=== PATIENT | male | born 1985 | race Caucasian/White ===

== ENCOUNTER 2016-03-14 12:33 | Inpatient (IN) ==
[~2016-03-14 12:33] MED LIST: Cefepime HCl 1,000 MG in D5% in Water (Mini-Bag+) 100 ML IVPB SCH
[2016-03-14] MEDS ORDERED: 0.9 % Sodium Chloride 1,000 ML IVC ONE (14:27)
[2016-03-14] MEDS ORDERED: methylPREDNISolone 125 MG/2 ML VIAL IVP ONE (14:28)
--- NOTE | 2016-03-14 14:29 | Emergency Department Note ---
Disposition Clinical Impression: Meningitis Headache Qualifiers: Headache type: unspecified Headache chronicity pattern: acute headache Intractability: intractable Qualified Code(s): R51 - Headache Fever Qualifiers: Fever type: unspecified Qualified Code(s): R50.9 - Fever, unspecified UTI (urinary tract infection) Qualifiers: Urinary tract infection type: acute cystitis Hematuria presence: without hematuria Qualified Code(s): N30.00 - Acute cystitis without hematuria Disposition: Admitted As Inpatient Condition: Fair Time of Disposition: 17:21 SOB HPI - General Chief Complaint: ED Headache Stated Complaint: fever, "aint feeling real good at all" Time Seen by Provider: 03/14/16 14:26 Source: patient Limitations: no limitations Nursing Notes Reviewed: Yes Vital Signs Reviewed: Yes - History of Present Illness He presents with cough congestion not feeling well. Patient has a history of asthma since he's been short of breath. Says his cough so much that he has a headache. The trach related to hypoventilation. He is on a ventilator at night. Pt Subjective Complaint: cough, "asthma attack" Onset (ago): day(s) Severity: moderate Consistency/Duration: constant Improves with: nothing Worsens with: exertion Known history of: asthma, other (Trach) Associated symptoms: Reports: fever, wheezing, sputum production Treatment prior to arrival: none - Related Data Home Medications Medication Instructions Recorded Confirmed Albuterol Inhaler 03/10/15 ClonazePAM 03/10/15 Cyclobenzaprine 03/10/15 Furosemide 03/10/15 Wellbutrin 03/10/15 Previous Rx's Medication Instructions Recorded Albuterol Neb [Proventil Neb] 2.5 mg IH Q4HR #1 vial.neb 03/10/15 Benzonatate [Tessalon] 100 mg PO TID 5 Days 03/10/15 Ipratropium/Albuterol Neb [Duoneb] 3 ml IH Q6HR 5 Days 03/10/15 Benzonatate [Tessalon] 100 mg PO TID 5 Days 07/07/15 Ipratropium/Albuterol Neb [Duoneb] 3 ml IH Q6HR 5 Days 07/07/15 Allergies Allergy/AdvReac Type Severity Reaction Status Date / Time aspirin [ASA] Allergy Difficulty Verified 07/07/15 08:57 Breathing Penicillins Allergy Difficulty Verified 07/07/15 08:57 Breathing Constitutional: Reports: fever. Denies: chills, weakness, weight change Eyes: Denies: eye pain, eye discharge, vision change ENT ED: Denies: ear pain, throat pain, dental pain, hearing loss, epistaxis, congestion, dysphagia Cardiovascular: Denies: chest pain, palpitations, dyspnea on exertion, edema, syncope Respiratory: Reports: cough, dyspnea, wheezes. Denies: hemoptysis, stridor Gastrointestinal: Denies: abdominal pain, nausea, vomiting, diarrhea, constipation, hematemesis, melena, hematochezia Genitourinary: Denies: urgency, dysuria, frequency, hematuria Musculoskeletal: Denies: back pain, neck pain, arthralgia, myalgia Integumentary: Denies: rash, abrasion, lesions Neurological: Denies: headache, weakness, numbness, paresthesias, confusion, abnormal gait, vertigo Psychiatric: Denies: anxiety, depression, suicidal thoughts, homicidal thoughts , auditory hallucinations, visual hallucinations Endocrine: Denies: fatigue Hematological/Lymphatic: Denies: easy bleeding, easy bruising Allergic/Immunologic: Denies: facial swelling, urticaria Past Medical History - Past Medical History Medical history: Reports: asthma, hypertension Psychiatric history: Reports: depression - Social History Smoking Status: Never smoker Smokeless Tobacco Status: No Alcohol use: Reports: none Drug use: Reports: none Physical Exam - General Limitations: no limitations General appearance: alert, in no apparent distress - Head Head exam: atraumatic, normocephalic, normal inspection - Eye Eye exam: Present: normal appearance, PERRL, EOMI - ENT ENT exam: normal exam, normal oropharynx, mucous membranes moist - Neck Neck exam: Present: normal inspection, full ROM, trachea midline, other ( Tracheostomy) - Chest Chest inspection: Present: normal inspection, symmetric chest wall rise - Respiratory Respiratory exam: Present: normal lung sounds bilaterally - Cardiovascular Cardiovascular exam: Present: regular rate, normal rhythm, normal heart sounds - Abdominal Exam Abdominal exam: Present: soft, Non-Tender. Absent: tenderness, distention, guarding, rebound, rigidity - Extremities Exam Extremities exam: Present: normal inspection, full ROM. Absent: tenderness, pedal edema - Expanded Lower Extremity Exam Neurovascular/Tendon exam: Absent: motor deficit, sensory deficit, tendon deficit Gait: not tested/not observed - Back Exam Back exam: Present: normal inspection - Neurological Exam Neurological exam: Present: alert, oriented X3 - Psychiatric Psychiatric exam: Present: normal affect, normal mood - Skin Skin exam: Present: warm, dry, intact, normal color Course - Reevaluation(s) Reevaluation #1: Patient has a headache is somewhat stiff neck. The fever. We recommend a lumbar puncture. Due to the patient's body habitus were not able to do one here under IR wore fluoroscopy. We contacted [facility] of they are full and will not have a bed available for at least a day or 2. Discussed the case with [facility] he exceeds the limits of the table at [facility] and Drs. Mitchell. I discussed with the patient transferred to the [facility] and he adamantly refuses that. Time: 15:34 Reevaluation #2: The initial blood draw was done and apparently did not get a lactate. A second line was placed and a lactate was ordered. Time: 18:33 - Consultations Consultation #1: A phone call returned from [facility] their table limit on their IR table is 250 kg, the patient exceeded the limit at [facility]. We have exhausted our options on transfer. The patient will be admitted here and treated empirically for meningitis. The patient will receive 2 g of Rocephin, 1 g of vancomycin, 600 mg of acyclovir empirically here in the ER. Time: 17:19 Consultation #2: I discussed the case with Dr. Tinsley, lilli. Time: 17:22 Consultation #3: I discussed the dosing of acyclovir with pharmacy. Their recommendations are on ideal body weight- 600 mg. Time: 17:22 Vital Signs Temperature 99.8 F H 03/14/16 12:46 Pulse Rate 115 03/14/16 12:46 Respiratory Rate 22 03/14/16 12:46 Blood Pressure 132/78 03/14/16 12:46 O2 Sat by Pulse Oximetry 97 03/14/16 12:46 Temperature 100.5 F H 03/14/16 17:24 Pulse Rate 127 03/14/16 17:24 Respiratory Rate 22 03/14/16 17:24 Blood Pressure 107/44 03/14/16 17:24 O2 Sat by Pulse Oximetry 94 L 03/14/16 17:24 Oxygen Delivery Oxygen Delivery Trach Mask Shortness of Breath/Dyspnea - Lab Data Result diagrams: 03/14/16 15:21 03/14/16 15:21 Lab Results 03/14/16 03/14/16 03/14/16 Range/Units 15:21 15:21 15:21 WBC 14.6 H (4.3-11.1) K/mcL RBC 4.76 (4.19-5.50) M/mcL Hgb 13.3 (12.9-16.9) g/dL Hct 41.7 (37.5-50.1) % MCV 87.6 (83.0-100.0) fL MCH 27.9 L (28.0-33.3) pg MCHC 31.9 (31.6-35.5) g/dL RDW 13.7 (11.5-14.5) % Plt Count 201 (140-400) K/mcL MPV 9.9 (9.4-12.4) fL Immature Gran % 0.9 (0-4) % Seg Neutrophils % 87.3 % Lymphocytes % 9.2 % Monocytes % 2.3 % Eosinophils % 0.0 % Basophils % 0.3 % Neutrophils # 12.8 H (1.6-8.9) K/mcL Lymphocytes # 1.3 (0.6-4.6) K/mcL Monocytes # 0.3 (0.0-1.3) K/mcL Eosinophils # 0.0 (0.0-0.6) K/mcL Basophils # 0.0 (0.0-0.2) K/mcL Sodium 136 (136-145) mEq/L Potassium 3.8 (3.5-4.5) mEq/L Chloride 103 (98-109) mEq/L Carbon Dioxide 21 (19-29) mEq/L BUN 12 (8-26) mg/dL Creatinine 0.78 (0.72-1.25) mg/dL Est GFR ( Amer) > 60 (> 60) Est GFR (Non-Af Amer) > 60 (> 60) BUN/Creatinine Ratio 15 (6-26) Glucose 99 (70-99) mg/dL Calculated Osmolality 282 (280-300) Calcium 8.7 (8.6-10.8) mg/dL Troponin I 0.00 (0-0.03) ng/mL B-Natriuretic Peptide (0-100) pg/mL Urine Color (Yellow) Urine Clarity (Clear) Urine pH (5.0-8.0) pH Units Ur Specific [place] (1.010-1.025) Urine Protein (Neg-Trace) mg/dL Urine Glucose (UA) (Normal) mg/dL Urine Ketones (Negative) mg/dL Urine Blood (Negative) Urine Nitrite (Negative) Urine Bilirubin (Negative) Urine Urobilinogen (Normal) mg/dL Ur Leukocyte Esterase (Negative) Urine Microscopic RBC (0-3) per hpf Urine Microscopic WBC (0-3) per hpf Ur Squamous Epith Cells (None-Few) per lpf Urine Bacteria (None-Few) per hpf Hyaline Casts (None-Few) per lpf Ur Culture Indicated? (NO) 03/14/16 03/14/16 Range/Units 15:22 15:45 WBC (4.3-11.1) K/mcL RBC (4.19-5.50) M/mcL Hgb (12.9-16.9) g/dL Hct (37.5-50.1) % MCV (83.0-100.0) fL MCH (28.0-33.3) pg MCHC (31.6-35.5) g/dL RDW (11.5-14.5) % Plt Count (140-400) K/mcL MPV (9.4-12.4) fL Immature Gran % (0-4) % Seg Neutrophils % % Lymphocytes % % Monocytes % % Eosinophils % % Basophils % % Neutrophils # (1.6-8.9) K/mcL Lymphocytes # (0.6-4.6) K/mcL Monocytes # (0.0-1.3) K/mcL Eosinophils # (0.0-0.6) K/mcL Basophils # (0.0-0.2) K/mcL Sodium (136-145) mEq/L Potassium (3.5-4.5) mEq/L Chloride (98-109) mEq/L Carbon Dioxide (19-29) mEq/L BUN (8-26) mg/dL Creatinine (0.72-1.25) mg/dL Est GFR ( Amer) (> 60) Est GFR (Non-Af Amer) (> 60) BUN/Creatinine Ratio (6-26) Glucose (70-99) mg/dL Calculated Osmolality (280-300) Calcium (8.6-10.8) mg/dL Troponin I (0-0.03) ng/mL B-Natriuretic Peptide 27 (0-100) pg/mL Urine Color Yellow (Yellow) Urine Clarity Cloudy A (Clear) Urine pH 7.0 (5.0-8.0) pH Units Ur Specific [place] 1.022 (1.010-1.025) Urine Protein 100 H (Neg-Trace) mg/dL Urine Glucose (UA) Normal (Normal) mg/dL Urine Ketones Negative (Negative) mg/dL Urine Blood Negative (Negative) Urine Nitrite Negative (Negative) Urine Bilirubin Negative (Negative) Urine Urobilinogen 4.0 H (Normal) mg/dL Ur Leukocyte Esterase Small H (Negative) Urine Microscopic RBC 3-5 H (0-3) per hpf Urine Microscopic WBC 30-50 H (0-3) per hpf Ur Squamous Epith Cells Many H (None-Few) per lpf Urine Bacteria Many H (None-Few) per hpf Hyaline Casts None Seen (None-Few) per lpf Ur Culture Indicated? YES A (NO) - EKG Data EKG attestation: Yes I reviewed and interpreted this EKG. EKG shows normal: Reports: sinus rhythm Rate: Reports: normal Rhythm: Reports: NSR Interpretation: Reports: no acute changes
[2016-03-14] MEDS ORDERED: Ipratropium/Albuterol Neb 3 ML IH ONE (14:33)
[2016-03-14] MEDS ORDERED: Vancomycin 1,000 MG in D5% in Water 250 ML IVPB ONE (15:26)
[2016-03-14 15:31] LABS: Basophils % 0.3 %; Hematocrit 41.7 % (37.5-50.1); Hemoglobin 13.3 g/dL (12.9-16.9); Immature Granulocytes % 0.9 % (0-4); Lymphocytes # 1.3 K/mcL (0.6-4.6); Lymphocytes % 9.2 %; Mean Corpuscular HGB Conc 31.9 g/dL (31.6-35.5); Mean Corpuscular Hemoglobin 27.9 pg (28.0-33.3); Mean Corpuscular Volume 87.6 fL (83.0-100.0); Mean Platelet Volume 9.9 fL (9.4-12.4); Monocytes # 0.3 K/mcL (0.0-1.3); Monocytes % 2.3 %; Neutrophils # 12.8 K/mcL (1.6-8.9); Platelet Count 201 K/mcL (140-400); Red Blood Count 4.76 M/mcL (4.19-5.50); Red Cell Distribution Width 13.7 % (11.5-14.5); Segmented Neutrophils % 87.3 %
[2016-03-14 15:47] LABS: BUN/Creatinine Ratio 15 (6-26); Blood Urea Nitrogen 12 mg/dL (8-26); Calcium 8.7 mg/dL (8.6-10.8); Carbon Dioxide 21 mEq/L (19-29); Chloride 103 mEq/L (98-109); Glucose 99 mg/dL (70-99); Osmolality,Calculated 282 (280-300); Potassium 3.8 mEq/L (3.5-4.5); Sodium 136 mEq/L (136-145); eGFR For African Americans > 60 (> 60); eGFR For Non-African Americans > 60 (> 60)
[2016-03-14 15:50] LABS: Bilirubin,Urine Negative (Negative); Blood,Urine Negative (Negative); Clarity,Urine Cloudy (Clear); Color,Urine Yellow (Yellow); Glucose,Urine (UA) Normal (Normal); Ketones,Urine Negative (Negative); Leukocyte Esterase,Urine Small (Negative); Nitrite,Urine Negative (Negative); Protein,Urine 100 mg/dL (Neg-Trace); Specific Gravity,Urine 1.022 (1.010-1.025)
[2016-03-14 15:51] LABS: Bacteria,Urine Many per hpf (None-Few); Hyaline Casts,Urine None Seen per lpf (None-Few); Squamous Epithelial Cell,Urine Many per lpf (None-Few); WBC,Urine 30-50 per hpf (0-3)
[2016-03-14] MEDS ORDERED: Acyclovir 600 MG in D5% in Water 250 ML IVPB ONE (17:17)
[2016-03-14] MEDS ORDERED: Naloxone 0.4 MG/ML INJ IVP PRN (19:32)
[2016-03-14] MEDS ORDERED: Albuterol 2.5 MG/3 ML NEBULIZER IH PRN (19:35)
[2016-03-14] MEDS ORDERED: 0.9 % Sodium Chloride 1,000 ML IVC SCH ×2 (19:45→20:23)
[2016-03-14] MEDS ORDERED: Furosemide 40 MG/4 ML VIAL IVP ONE (20:23)
[2016-03-14] MEDS ORDERED: Cefepime HCl 1,000 MG in D5% in Water (Mini-Bag+) 100 ML IVPB SCH (20:55)
--- NOTE | 2016-03-14 21:02 | Internal Med History&Physical ---
Date of Encounter: 03/14/16 Time of Encounter: 20:00 Assessment and Plan (1) Fever Current visit: Yes Status: Acute -Multifactorial, likely secondary to UTI vs. concern for bactremia given history of chronic cellulitis and worsening LLE erythema -Given clinical presentation, highly unlikely patient has meningitis. He complains more of respiratory issues with cough and difficult breathing. -Headache resolved, no neck stiffness -Patient given empiric IV abx for Meningitis -Unable to obtain LP due to body habitus -follow up blood cultures Qualifiers: Qualified Code(s): R50.9 - Fever, unspecified (2) Bacteremia Current visit: Yes Status: Acute -concern for bacteremia given worsening LLE erythema/chronic cellulitis -Will continue Vancomycin for Staph coverage -Added Cefepime for pseudomonal coverage given history of respiratory failure requiring vent support -Patient received Ceftriaxone in the ER for concern for meningitis, will continue at this time. Please re-evaluate in am, if clinically improving, discontinue Ceftriaxone. -follow up blood cultures (3) Pulmonary edema Current visit: Yes Status: Acute -no history of CHF -however noted to have Pulm Edema on CXR -will give one dose of Lasix 40mg IV -continue to closely monitor -will attempt to obtain 2D echo Qualifiers: Chronicity: chronic Qualified Code(s): J81.1 - Chronic pulmonary edema (4) Headache Current visit: Yes Status: Resolved -Resolved at this time -can be secondary to the underlying fever Qualifiers: Headache type: tension-type Headache chronicity pattern: acute headache Intractability: intractable Qualified Code(s): G44.201 - Tension-type headache , unspecified, intractable (5) UTI (urinary tract infection) Current visit: Yes Status: Acute -continue IV abx -follow up urine culture Qualifiers: Urinary tract infection type: acute cystitis Hematuria presence: without hematuria Qualified Code(s): N30.00 - Acute cystitis without hematuria (6) Hypertension Current visit: Yes Status: Acute BP within acceptable range -continue home medications Qualifiers: Hypertension type: essential hypertension Qualified Code(s): I10 - Essential (primary) hypertension (7) Obesity hypoventilation syndrome Current visit: Yes Status: Acute -pt reports of being on ventilator support at night -will continue Vent support at bedtime -O2 supplementation as needed (8) DVT prophylaxis Current visit: Yes Status: Acute Heparin SQ (9) Morbid obesity with BMI of 70 and over, adult Current visit: Yes Status: Chronic Internal Medicine - H&P: HPI Chief complaint: generalized weakness, headache, fever Admitted From: Home Plans for Post Hospital Care: [facility] History of present illness: Mr. Kaminski is a 30 year old male with PMH of morbid obesity,obesity hypoventilation syndrome, hypertension, asthma, s/p tracheostomy due respiratory failure who presents to the ER for evaluation of generalized weakness,fever, and diffuse headache. In the ER patient reported of neck stiffness and concern for meningitis was raised. Patient was started on empiric treatment for meningitis. Due to patient's body habitus unable to do LP in the ER. During my evaluation patient is sitting in bed with present at bedside. He reports of feeling significantly better since his admission to the hospital, denies any headache, neck stiffness at this time. He has bilateral LE lymphedema and chronic cellulitis. He reports of using a ventilator at night and Oxygen throughout the day. At this time he denies any headache, dizziness, lightheadedness, chest pain, sob, abd pain, n/v, fever, or chills. Social Hx: Denies any smoking history, alcohol use, or illicit drug use Past Med Surg Social Fam HX - Past Medical History Medical history: asthma, hypertension Psychiatric history: depression - Social History Smoking Status: Never smoker Smokeless Tobacco Status: No Alcohol use: none Drug use: none Internal Medicine - H&P: Meds Albuterol Neb [Proventil Neb] 2.5 mg IH Q4H PRN 03/14/16 [History] BuPROPion SR (12 HR) [Wellbutrin SR] 150 mg PO BID 03/14/16 [History] Cetirizine HCl [Zyrtec] 10 mg PO DAILY 03/14/16 [History] ClonazePAM [Klonopin] 0.5 mg PO BID 03/14/16 [History] Cyclobenzaprine HCl 10 mg PO TID 03/14/16 [History] Fluticasone/Vilanterol [Breo Ellipta 100-25 Mcg INH] 1 each IH DAILY 03/14/16 [ History] Furosemide [Lasix] 40 mg PO BID 03/14/16 [History] Metoprolol [Lopressor] 50 mg PO BID 03/14/16 [History] Potassium Chloride [K-Tab ER] 20 meq PO DAILY 03/14/16 [History] Allergies aspirin [ASA] Allergy (Verified 07/07/15 08:57) Difficulty Breathing Penicillins Allergy (Verified 07/07/15 08:57) Difficulty Breathing All Systems PM: A 10-system review of systems was performed and is negative for pertinent findings except as documented above in the HPI. - Constitutional Constitutional: as per HPI - Constitutional Vitals: Temp Pulse Resp BP Pulse Ox 101.2 F H 113 26 128/62 96 03/14/16 19:32 03/14/16 20:05 03/14/16 20:05 03/14/16 19:32 03/14/16 20:05 General appearance: Present: cooperative, A&O X 3, morbidly obese, no acute distress, answers questions appropriately - Head Head exam: Present: atraumatic, normocephalic - Eye Eye exam: Present: EOMI, conjuntiva pink, sclera anicteric - Neck Neck exam general surgery: Present: tenderness. Absent: nuchal rigidity - Respiratory Respiratory exam: Present: decreased breath sounds. Absent: respiratory distress, wheezes - Cardiovascular Cardiovascular exam: Present: +S1, +S2, tachycardia - GI/Abdominal GI/Abdominal exam: Present: distended (obese), normal bowel sounds, soft, no peritoneal signs. Absent: tenderness - Extremities Exam Extremities exam: Present: pedal edema (bilateral lower extremity lymphedema, Distal LLE erythema), warm, radial pulses palpable and symetrical - Neurological Exam Neurological exam: Present: alert, oriented X3, no focal deficits - Psychiatric Psychiatric exam: Present: normal affect, normal mood Internal Med - H&P Results - Labs CBC & Chem 7: 03/14/16 15:21 03/14/16 15:21
[2016-03-14] MEDS: clonazePAM 0.5 MG TABLET PO SCH (21:55)
[2016-03-14] MEDS: BuPROPion SR (12 HR) 150 MG TABLET PO SCH (21:55)
[2016-03-14] MEDS: Furosemide 40 MG TABLET PO SCH (23:12)
[2016-03-15] MEDS: *HR* Heparin 5,000 UNIT/ML VIAL SQ SCH ×4 (00:46→22:48)
[2016-03-15] MEDS ORDERED: Acyclovir 600 MG in D5% in Water 250 ML IVPB SCH (02:00)
[2016-03-15] MEDS: Vancomycin 2,000 MG in D5% in Water 500 ML IVPB SCH ×2 (03:52→16:08)
[2016-03-15 04:42] LABS: Basophils % 0.1 %; Hematocrit 42.8 % (37.5-50.1); Hemoglobin 13.7 g/dL (12.9-16.9); Immature Granulocytes % 1.5 % (0-4); Lymphocytes # 1.2 K/mcL (0.6-4.6); Lymphocytes % 8.5 %; Mean Corpuscular Hemoglobin 28.4 pg (28.0-33.3); Mean Corpuscular Volume 88.8 fL (83.0-100.0); Mean Platelet Volume 10.4 fL (9.4-12.4); Monocytes # 0.2 K/mcL (0.0-1.3); Monocytes % 1.5 %; Neutrophils # 12.7 K/mcL (1.6-8.9); Platelet Count 193 K/mcL (140-400); Red Blood Count 4.82 M/mcL (4.19-5.50); Red Cell Distribution Width 13.5 % (11.5-14.5); Segmented Neutrophils % 88.4 %
[2016-03-15 04:57] LABS: BUN/Creatinine Ratio 17 (6-26); Blood Urea Nitrogen 14 mg/dL (8-26); Calcium 8.4 mg/dL (8.6-10.8); Carbon Dioxide 22 mEq/L (19-29); Chloride 104 mEq/L (98-109); Glucose 201 mg/dL (70-99); Magnesium 1.9 mg/dL (1.6-2.6); Osmolality,Calculated 294 (280-300); Phosphorous 3.2 mg/dL (2.3-4.7); Potassium 3.7 mEq/L (3.5-4.5); Sodium 139 mEq/L (136-145); eGFR For African Americans > 60 (> 60); eGFR For Non-African Americans > 60 (> 60)
[2016-03-15] MEDS ORDERED: Vancomycin 1,000 MG in D5% in Water 250 ML IVPB SCH (06:00)
[2016-03-15] MEDS ORDERED: Cefepime HCl 1,000 MG in D5% in Water (Mini-Bag+) 100 ML IVPB SCH (08:00)
[2016-03-15] MEDS: Loratadine 10 MG TABLET PO SCH (08:01)
[2016-03-15] MEDS: Furosemide 40 MG TABLET PO SCH ×2 (08:01→22:48)
[2016-03-15] MEDS: clonazePAM 0.5 MG TABLET PO SCH ×2 (08:01→22:48)
[2016-03-15] MEDS: BuPROPion SR (12 HR) 150 MG TABLET PO SCH ×2 (08:02→22:48)
[2016-03-15] MEDS: Budesonide/Formoterol 160/4.5 MDI IH SCH ×2 (08:47→20:20)
--- NOTE | 2016-03-15 13:29 | Electrocardiograph Report ---
[facility] Test Date: 2016-03-14 Pat Name: Gopal Kaminski Department: 103 Room: 2N03 Gender: M Javascript Application Developer: MSC : 1985 Requested By: Armando Doe Order Number: [id number] Reading MD: Gisselle Wilkerson Measurements Intervals [place] Rate: 118 P: 54 OK: 171 QRS: 85 QRSD: 110 T: 35 QT: 311 QTc: 381 Interpretive Statements SINUS TACHYCARDIA ABNORMAL RHYTHM ECG Electronically Signed On 03-15-16 13:27:37 EST by Gisselle Wilkerson
[2016-03-15] MEDS ORDERED: Perflutren Lipid Microsphere 1.3 ML in 0.9 % Sodium Chloride 8.7 ML IVP ONE (16:30)
--- NOTE | 2016-03-15 19:27 | Internal Med Progress Note ---
Date of Encounter: 03/15/16 Time of Encounter: 11:10 - Assessment and plan (1) Cellulitis, leg Current Visit: Yes Status: Acute Assessment and plan: Will treat him with vancomycin and ceftriaxone. Vancomycin dosing per pharmacy Qualifiers: Laterality: left Qualified Code(s): L03.116 - Cellulitis of left lower limb (2) Fever Current Visit: Yes Status: Acute Assessment and plan: Possibly due to cellulitis versus urinary tract infection versus tracheo bronchitis. Clinically unlikely to be meningitis. Urinalysis showed multiple epithelial cell - await urine cultures. Continue current antibiotics Qualifiers: Fever type: unspecified Qualified Code(s): R50.9 - Fever, unspecified (3) Obesity hypoventilation syndrome Current Visit: Yes Status: Acute Assessment and plan: Patient is status post tracheostomy and ventilator. Ventilator in the hospital is apparently not fitting his tracheostomy. Advised patient's family to bring in his home ventilator (4) Morbid obesity with BMI of 70 and over, adult Current Visit: Yes Status: Chronic Assessment and plan: Supportive care (5) Chronic respiratory failure Current Visit: Yes Status: Acute Assessment and plan: Obesity hypoventilation syndrome. Patient is status post tracheostomy and ventilator. Ventilator in the hospital is apparently not fitting his tracheostomy. Advised patient's family to bring in his home ventilator Qualifiers: Respiratory failure complication: unspecified whether with hypoxia or hypercapnia Qualified Code(s): J96.10 - Chronic respiratory failure, unspecified whether with hypoxia or hypercapnia - Subjective Interval history: Pt is seen and examined at the bedside and chart reviewed. Pt reports feeling today. Denies headache, nausea, vomiting, fever, chills. He has cough, with some greenish sputum, which is apparently chronic. RN reported that the patient has uncuffed tracheostomy and was not fitting the vent in the hospital. - Constitutional Vitals: Temp Pulse Resp BP Pulse Ox 98.6 F 76 20 121/73 95 03/15/16 16:17 03/15/16 16:17 03/15/16 16:17 03/15/16 16:17 03/15/16 16:17 General appearance: Present: A&O X 3, morbidly obese Exam: General: Not in acute distress at the time of my evaluation. Morbidly obese Lungs: Clear to auscultation Cardiac: Regular rate and rhythm. No significant murmurs Abdomen: Obese, non tender. Bowel sounds present Neurological: Alert and oriented. No gross localizing deficits Psych: Not agrressive or agitated Extremities: Dry skin and erythema of the left leg. Chronic edema Skin: No generalized rash Internal Medicine: Result - Labs CBC & Chem 7: 03/15/16 04:00 03/15/16 04:00 Labs: Short CBC 03/15/16 Range/Units 04:00 WBC 14.4 H (4.3-11.1) K/mcL Hgb 13.7 (12.9-16.9) g/dL Hct 42.8 (37.5-50.1) % Plt Count 193 (140-400) K/mcL Neutrophils # 12.7 H (1.6-8.9) K/mcL BMP 03/15/16 04:00 Sodium 139 Potassium 3.7 Chloride 104 Carbon Dioxide 22 BUN 14 Creatinine 0.84 Glucose 201 H Calcium 8.4 L - Impressions ITS Impressions Chest X-Ray 03/14/16 14:22 IMPRESSION: 1. Cardiomegaly with mild pulmonary edema. 2. Tracheostomy. D/ / 03/14/2016 14:56:04 Alicia Humphreys MD / [facility] Interpreting Provider: Alicia Humphreys MD Consult Discharge Plan - Plan Referrals: Rene Bo MD [Primary Care Provider] - (Called and spoke with Zoila Sesay to get an appointment for this patient and they have to see if Dr. Bo is willing to take the patient back. Will call and let us know. Thanks)
[2016-03-16] MEDS: Vancomycin 2,000 MG in D5% in Water 500 ML IVPB SCH ×2 (03:20→16:23)
[2016-03-16 05:05] LABS: Hematocrit 40.7 % (37.5-50.1); Hemoglobin 12.8 g/dL (12.9-16.9); Mean Corpuscular HGB Conc 31.4 g/dL (31.6-35.5); Mean Corpuscular Hemoglobin 27.5 pg (28.0-33.3); Mean Corpuscular Volume 87.5 fL (83.0-100.0); Mean Platelet Volume 10.8 fL (9.4-12.4); Platelet Count 261 K/mcL (140-400); Red Blood Count 4.65 M/mcL (4.19-5.50); Red Cell Distribution Width 13.6 % (11.5-14.5)
[2016-03-16 05:18] LABS: BUN/Creatinine Ratio 20 (6-26); Blood Urea Nitrogen 16 mg/dL (8-26); Calcium 8.3 mg/dL (8.6-10.8); Carbon Dioxide 24 mEq/L (19-29); Chloride 104 mEq/L (98-109); Glucose 118 mg/dL (70-99); Osmolality,Calculated 292 (280-300); Potassium 3.4 mEq/L (3.5-4.5); Sodium 140 mEq/L (136-145); eGFR For African Americans > 60 (> 60); eGFR For Non-African Americans > 60 (> 60)
--- NOTE | 2016-03-16 08:15 | ECHO - Doppler Report ---
Echo with Imaging Enhancement Agent Name: Gopal Kaminski Date of Study: 03/15/2016 Date: 1985 Ht: 65.0 in Medical Record#: [id number] Age: 30 Wt: 578.0 lb Gender: Male BSA: 3.11 Order #: [id number] Location: [facility] Room #: 2N3 Reading Physician: Miguel Delgado MD, [facility] Receivable Clerk: Glory Sloan RDCS Ordering Physician: Kirti Valentine MD Primary Physician: Rene Bo MD Indications: Congestive heart failure Impressions: Technically sub-optimal due to body habitus. Echo contrast was used. Normal left ventricular size and systolic function, LVEF 55%. Not all myocardial segments were well visualized. Atypical septal motion consistent with bundle branch block. Indeterminate diastolic function. Right ventricle was not well visualized. Appears grossly normal in size and function. Cardiac valves were poorly visualized. No evidence of significant valvular dysfunction. Unable to estimate RVSP due to lack of TR jet. Left Ventricular Wall Motion: Rest Echo Findings All wall segments showed normal motion. Findings: Study Quality * Technically sub-optimal due to body habitus. Echo contrast was used. ECG Findings * Normal sinus rhythm. Left Ventricle * Normal left ventricular size and systolic function, LVEF 55%. Not all myocardial segments were well visualized. * Atypical septal motion consistent with bundle branch block. * Normal LV wall thickness. * Indeterminate diastolic function. Right Ventricle * Right ventricle was not well visualized. Appears grossly normal in size and function. Left Atrium * Left atrium is not well visualized. Right Atrium * Right atrium is not well visualized. Aorta * Normally sized aortic root. Pericardium * There is no pericardial effusion present. IVC * The IVC is not well evaluated. Aortic Valve * Aortic valve not well visualized. * Normal aortic valve function. Mitral Valve * Mitral valve not well visualized. * Normal mitral valve function. Tricuspid Valve * Tricuspid valve not well visualized. * Normal tricuspid valve function. * Unable to estimate RVSP due to lack of TR jet. Pulmonic Valve * Pulmonic valve not well visualized. * Normal pulmonic valve function. History Hypertension 08/21/2013 a Previous Echo was performed. Contrast: Definity 1.3 ml in 8.7 ml of saline 4 ml. Measurements: BP: 115/ 68 2D Normal Values RVIDd: 3.00 cm IVSd: .94 cm 0.6 - 1.0 cm LVIDd: 5.78 cm 3.7 - 5.6 cm LVPWd: 1.08 cm 0.6 - 1.1 cm LVIDs: 4.23 cm 1.5 - 3.6 cm AO: 3.50 cm < 4.0 cm %FS: 26.80 cm >25 % LA volume: 27 Updated by Miguel Delgado MD, [facility] on 03/16/2016 8:08:44 AM electronically signed on 03/16/2016 8:09:37 AM with status of Final Wall Motion Godfrey: 1=Normal, 2=Hypokinesis, 3=Akinesis, 4=Dyskinesis, 5=Aneurysmal, 6=Hyperkinetic, X=Not Visualized (Blank)=Missing
[2016-03-16] MEDS: Furosemide 40 MG TABLET PO SCH ×2 (09:21→21:15)
[2016-03-16] MEDS: BuPROPion SR (12 HR) 150 MG TABLET PO SCH ×2 (09:21→21:15)
[2016-03-16] MEDS: Loratadine 10 MG TABLET PO SCH (09:21)
[2016-03-16] MEDS: *HR* Heparin 5,000 UNIT/ML VIAL SQ SCH ×2 (09:21→16:24)
[2016-03-16] MEDS: clonazePAM 0.5 MG TABLET PO SCH ×2 (09:21→21:15)
[2016-03-16] MEDS: Budesonide/Formoterol 160/4.5 MDI IH SCH ×2 (11:12→20:29)
--- NOTE | 2016-03-16 18:42 | Internal Med Progress Note ---
Date of Encounter: 03/16/16 Time of Encounter: 14:20 - Assessment and plan (1) Cellulitis, leg Current Visit: Yes Status: Acute Assessment and plan: Continue with vancomycin and ceftriaxone. Vancomycin dosing per pharmacy. We marked the area of cellulitis of left leg. Will consider surgical consultation , the patient is not improving Qualifiers: Laterality: left Qualified Code(s): L03.116 - Cellulitis of left lower limb (2) Fever Current Visit: Yes Status: Resolved Assessment and plan: Possibly due to cellulitis versus urinary tract infection versus tracheo bronchitis. Clinically unlikely to be meningitis. Resolved now Qualifiers: Fever type: unspecified Qualified Code(s): R50.9 - Fever, unspecified (3) Obesity hypoventilation syndrome Current Visit: Yes Status: Acute Assessment and plan: Patient is status post tracheostomy and ventilator. Ventilator in the hospital is apparently not fitting his tracheostomy. Continue Ventimask (4) Morbid obesity with BMI of 70 and over, adult Current Visit: Yes Status: Chronic Assessment and plan: Supportive care (5) Chronic respiratory failure Current Visit: Yes Status: Acute Assessment and plan: Obesity hypoventilation syndrome. Patient is status post tracheostomy and ventilator. Ventilator in the hospital is apparently not fitting his tracheostomy. Continue Ventimask. Qualifiers: Respiratory failure complication: unspecified whether with hypoxia or hypercapnia Qualified Code(s): J96.10 - Chronic respiratory failure, unspecified whether with hypoxia or hypercapnia (6) UTI (urinary tract infection) Current Visit: Yes Status: Acute Assessment and plan: Urine culture shows Klebsiella pneumonia. Continue ceftriaxone. Qualifiers: Urinary tract infection type: acute cystitis Hematuria presence: without hematuria Qualified Code(s): N30.00 - Acute cystitis without hematuria (7) Bacteremia Current Visit: Yes Status: Ruled-out Assessment and plan: Blood cultures are negative. There was suspision for bacteremia at admission, but blood cultures are negative and hence ruled out - Subjective Interval history: Pt is seen and examined at the bedside and chart reviewed. Pt reports feeling better today. Denies headache, nausea, vomiting, fever, chills. He has cough, with some greenish sputum, which is apparently chronic. Pt had ventimask with his tracheostomy. Blood cultures are negative and there is no evidence for bacteremia - Constitutional Vitals: Temp Pulse Resp BP Pulse Ox 98.6 F 70 20 113/70 97 03/16/16 15:00 03/16/16 17:05 03/16/16 15:00 03/16/16 15:00 03/16/16 17:05 General appearance: Present: A&O X 3, morbidly obese Exam: General: Not in acute distress at the time of my evaluation. Morbid obesity Lungs: Clear to auscultation Cardiac: Regular rate and rhythm. No significant murmurs Abdomen: Soft, non tender. Bowel sounds present Neurological: Alert and oriented. No gross localizing deficits Psych: Not aggressive or agitated Extremities: There is erythema, warmth and tenderness over the left lower thigh. No obvious abscess noted Skin: No generalized rash Internal Medicine: Result - Labs CBC & Chem 7: 03/17/16 04:15 03/17/16 04:15 Labs: Short CBC 03/16/16 Range/Units 04:12 WBC 15.8 H (4.3-11.1) K/mcL Hgb 12.8 L (12.9-16.9) g/dL Hct 40.7 (37.5-50.1) % Plt Count 261 (140-400) K/mcL [facility] 03/16/16 04:12 Sodium 140 Potassium 3.4 L Chloride 104 Carbon Dioxide 24 BUN 16 Creatinine 0.82 Glucose 118 H Calcium 8.3 L Consult Discharge Plan - Plan Referrals: Rene Bo MD [Primary Care Provider] - 03/23/16 3:15 pm (show up 30 minutes early to fill out paper work.)
[2016-03-16] MEDS: traMADol 50 MG TABLET PO PRN (18:54)
[2016-03-17] MEDS: traMADol 50 MG TABLET PO PRN (00:49)
[2016-03-17] MEDS: *HR* Heparin 5,000 UNIT/ML VIAL SQ SCH ×3 (00:49→18:00)
[2016-03-17 05:05] LABS: BUN/Creatinine Ratio 18 (6-26); Blood Urea Nitrogen 14 mg/dL (8-26); C-Reactive Protein 86 mg/L (Less than 5); Calcium 7.9 mg/dL (8.6-10.8); Carbon Dioxide 28 mEq/L (19-29); Chloride 104 mEq/L (98-109); Glucose 91 mg/dL (70-99); Osmolality,Calculated 288 (280-300); Potassium 3.5 mEq/L (3.5-4.5); Sodium 139 mEq/L (136-145); eGFR For African Americans > 60 (> 60); eGFR For Non-African Americans > 60 (> 60)
[2016-03-17 05:10] LABS: Hematocrit 40.1 % (37.5-50.1); Hemoglobin 12.3 g/dL (12.9-16.9); Mean Corpuscular HGB Conc 30.7 g/dL (31.6-35.5); Mean Corpuscular Hemoglobin 27.5 pg (28.0-33.3); Mean Corpuscular Volume 89.5 fL (83.0-100.0); Mean Platelet Volume 10.4 fL (9.4-12.4); Platelet Count 262 K/mcL (140-400); Red Blood Count 4.48 M/mcL (4.19-5.50); Red Cell Distribution Width 13.8 % (11.5-14.5)
[2016-03-17] MEDS: Vancomycin 2,000 MG in D5% in Water 500 ML IVPB SCH ×2 (06:15→16:03)
[2016-03-17] MEDS: Budesonide/Formoterol 160/4.5 MDI IH SCH ×2 (08:01→22:09)
[2016-03-17] MEDS: clonazePAM 0.5 MG TABLET PO SCH ×2 (10:09→20:39)
[2016-03-17] MEDS: BuPROPion SR (12 HR) 150 MG TABLET PO SCH ×2 (10:09→20:39)
[2016-03-17] MEDS: Furosemide 40 MG TABLET PO SCH ×2 (10:09→20:39)
[2016-03-17] MEDS: Loratadine 10 MG TABLET PO SCH (10:10)
[2016-03-17] MEDS ORDERED: Meropenem 1,000 MG in 0.9 % Sodium Chloride Mini Bag 100 ML IVPB SCH (10:58)
[2016-03-17] MEDS: *HR* Morphine 2 MG/ML SYRINGE IVP PRN ×3 (11:50→20:40)
[2016-03-17] MEDS: Meropenem 1,000 MG in 0.9 % Sodium Chloride Mini Bag 100 ML IVPB SCH ×2 (13:13→19:54)
--- NOTE | 2016-03-17 15:49 | Internal Med Progress Note ---
Date of Encounter: 03/17/16 Time of Encounter: 10:05 - Assessment and plan (1) Cellulitis, leg Current Visit: Yes Status: Acute Assessment and plan: Edema is worsening. Change antibiotics to vancomycin and Zosyn. Vancomycin dosing per pharmacy. Will consider surgical consultation, the patient is not improving Qualifiers: Laterality: left Qualified Code(s): L03.116 - Cellulitis of left lower limb (2) Fever Current Visit: Yes Status: Resolved Assessment and plan: Possibly due to cellulitis versus urinary tract infection versus tracheo bronchitis. Clinically unlikely to be meningitis. Resolved now Qualifiers: Fever type: unspecified Qualified Code(s): R50.9 - Fever, unspecified (3) Obesity hypoventilation syndrome Current Visit: Yes Status: Acute Assessment and plan: Patient is status post tracheostomy and ventilator. Ventilator in the hospital is apparently not fitting his tracheostomy. Continue Ventimask (4) Morbid obesity with BMI of 70 and over, adult Current Visit: Yes Status: Chronic Assessment and plan: Supportive care (5) Chronic respiratory failure Current Visit: Yes Status: Acute Assessment and plan: Obesity hypoventilation syndrome. Patient is status post tracheostomy and ventilator. Ventilator in the hospital is apparently not fitting his tracheostomy. Continue Ventimask. Qualifiers: Respiratory failure complication: unspecified whether with hypoxia or hypercapnia Qualified Code(s): J96.10 - Chronic respiratory failure, unspecified whether with hypoxia or hypercapnia (6) UTI (urinary tract infection) Current Visit: Yes Status: Acute Assessment and plan: Urine culture shows Klebsiella pneumonia. Continue zosyn. Qualifiers: Urinary tract infection type: acute cystitis Hematuria presence: without hematuria Qualified Code(s): N30.00 - Acute cystitis without hematuria (7) Bacteremia Current Visit: Yes Status: Ruled-out Assessment and plan: Blood cultures are negative. There was suspision for bacteremia at admission, but blood cultures are negative and hence ruled out - Subjective Interval history: Pt is seen and examined at the bedside and chart reviewed. Pt reports feeling better today. Denies headache, nausea, vomiting, fever, chills. Reports pain over the left lower thigh. Pt had ventimask with his tracheostomy. Blood cultures are negative and there is no evidence for bacteremia - Constitutional Vitals: Temp Pulse Resp BP Pulse Ox 97.6 F 71 20 118/58 94 L 03/17/16 11:57 03/17/16 11:57 03/17/16 11:57 03/17/16 11:57 03/17/16 11:57 Exam: General: Not in acute distress at the time of my evaluation. Morbid obesity. Lungs: Clear to auscultation Cardiac: Regular rate and rhythm. No significant murmurs Abdomen: Soft, non tender. Bowel sounds present Neurological: Alert and oriented. No gross localizing deficits Psych: Not agrressive or agitated Extremities: Worsening erythema over the left lower thigh. Local warmth and tenderness present Skin: No generalized rash Internal Medicine: Result - Labs CBC & Chem 7: 03/17/16 04:15 03/17/16 04:15 Labs: Short CBC 03/17/16 Range/Units 04:15 WBC 13.2 H (4.3-11.1) K/mcL Hgb 12.3 L (12.9-16.9) g/dL Hct 40.1 (37.5-50.1) % Plt Count 262 (140-400) K/mcL BMP 03/17/16 04:15 Sodium 139 Potassium 3.5 Chloride 104 Carbon Dioxide 28 BUN 14 Creatinine 0.79 Glucose 91 Calcium 7.9 L Microbiology 03/16/16 16:30 Sputum Culture - Preliminary Sputum 03/14/16 15:21 Blood Culture - Preliminary Peripheral Venipuncture No growth. 03/14/16 15:21 Blood Culture - Preliminary Peripheral Venipuncture No growth. 03/14/16 15:45 Urine Culture - Final Urine,Clean Catch Klebsiella pneumoniae Consult Discharge Plan - Plan Referrals: Rene Bo MD [Primary Care Provider] - 03/23/16 3:15 pm (show up 30 minutes early to fill out paper work.)
[2016-03-18] MEDS: *HR* Heparin 5,000 UNIT/ML VIAL SQ SCH ×4 (00:01→23:47)
[2016-03-18] MEDS: *HR* Morphine 2 MG/ML SYRINGE IVP PRN ×8 (00:02→23:48)
[2016-03-18] MEDS: Vancomycin 2,000 MG in D5% in Water 500 ML IVPB SCH ×2 (02:23→16:22)
[2016-03-18 03:56] LABS: Hematocrit 37.6 % (37.5-50.1); Hemoglobin 11.9 g/dL (12.9-16.9); Mean Corpuscular HGB Conc 31.6 g/dL (31.6-35.5); Mean Corpuscular Hemoglobin 28.3 pg (28.0-33.3); Mean Corpuscular Volume 89.5 fL (83.0-100.0); Mean Platelet Volume 10.2 fL (9.4-12.4); Platelet Count 253 K/mcL (140-400); Red Cell Distribution Width 13.7 % (11.5-14.5)
[2016-03-18 04:07] LABS: BUN/Creatinine Ratio 13 (6-26); Blood Urea Nitrogen 11 mg/dL (8-26); Calcium 7.9 mg/dL (8.6-10.8); Carbon Dioxide 32 mEq/L (19-29); Chloride 99 mEq/L (98-109); Glucose 125 mg/dL (70-99); Osmolality,Calculated 287 (280-300); Potassium 3.6 mEq/L (3.5-4.5); Sodium 138 mEq/L (136-145); eGFR For African Americans > 60 (> 60); eGFR For Non-African Americans > 60 (> 60)
[2016-03-18] MEDS: Meropenem 1,000 MG in 0.9 % Sodium Chloride Mini Bag 100 ML IVPB SCH ×3 (04:24→20:12)
[2016-03-18] MEDS: Budesonide/Formoterol 160/4.5 MDI IH SCH ×2 (08:30→22:24)
[2016-03-18] MEDS: Lactobacillus 1 EACH CAP.SPRINK PO SCH ×2 (09:18→20:52)
[2016-03-18] MEDS: BuPROPion SR (12 HR) 150 MG TABLET PO SCH ×2 (09:19→20:52)
[2016-03-18] MEDS: clonazePAM 0.5 MG TABLET PO SCH ×2 (09:19→20:52)
[2016-03-18] MEDS: Loratadine 10 MG TABLET PO SCH (09:19)
[2016-03-18] MEDS: Furosemide 40 MG TABLET PO SCH ×2 (09:19→20:52)
--- NOTE | 2016-03-18 20:12 | Internal Med Progress Note ---
Date of Encounter: 03/18/16 Time of Encounter: 09:50 - Assessment and plan (1) Cellulitis, leg Current Visit: Yes Status: Acute Assessment and plan: Continue vancomycin and meropenem (zosyn was not given due to allergy to penicillin). Vancomycin dosing per pharmacy. Will consider surgical consultation, if the patient is not improving Qualifiers: Laterality: left Qualified Code(s): L03.116 - Cellulitis of left lower limb (2) Fever Current Visit: Yes Status: Resolved Assessment and plan: Possibly due to cellulitis versus urinary tract infection. Clinically unlikely to be meningitis. Resolved now Qualifiers: Fever type: unspecified Qualified Code(s): R50.9 - Fever, unspecified (3) Obesity hypoventilation syndrome Current Visit: Yes Status: Acute Assessment and plan: Patient is status post tracheostomy and ventilator. Ventilator in the hospital is apparently not fitting his tracheostomy. Continue Ventimask (4) Morbid obesity with BMI of 70 and over, adult Current Visit: Yes Status: Chronic Assessment and plan: Supportive care (5) Chronic respiratory failure Current Visit: Yes Status: Acute Assessment and plan: Obesity hypoventilation syndrome. Patient is status post tracheostomy and on ventilator. Ventilator in the hospital is apparently not fitting his tracheostomy. Continue Ventimask. Qualifiers: Respiratory failure complication: unspecified whether with hypoxia or hypercapnia Qualified Code(s): J96.10 - Chronic respiratory failure, unspecified whether with hypoxia or hypercapnia (6) UTI (urinary tract infection) Current Visit: Yes Status: Acute Assessment and plan: Urine culture shows Klebsiella pneumonia. Continue meropenem (zosyn was not given due to penicillin allergy) Qualifiers: Urinary tract infection type: acute cystitis Hematuria presence: without hematuria Qualified Code(s): N30.00 - Acute cystitis without hematuria (7) Bacteremia Current Visit: Yes Status: Ruled-out Assessment and plan: Blood cultures are negative. There was suspision for bacteremia at admission, but blood cultures are negative and hence ruled out - Subjective Interval history: Pt is seen and examined at the bedside and chart reviewed. Pt reports feeling better today. Denies headache, nausea, vomiting, fever, chills. Continues to report pain over the left lower thigh. Pt had ventimask with his tracheostomy. Blood cultures are negative and there is no evidence for bacteremia - Constitutional Vitals: Temp Pulse Resp BP Pulse Ox 97.8 F 75 16 121/59 92 L 03/18/16 18:54 03/18/16 18:54 03/18/16 18:54 03/18/16 18:54 03/18/16 18:54 General appearance: Present: morbidly obese Exam: General: Not in acute distress at the time of my evaluation. Morbid obesity. Status post tracheostomy Lungs: Clear to auscultation Cardiac: Regular rate and rhythm. No significant murmurs Abdomen: Soft, non tender. Bowel sounds present Neurological: Alert and oriented. No gross localizing deficits Psych: Not aggressive or agitated Extremities: There is erythema over the medial aspect of the left leg, with receding margins. Skin: No generalized rash Internal Medicine: Result - Labs CBC & Chem 7: 03/18/16 03:34 03/18/16 03:34 Labs: Short CBC 03/18/16 Range/Units 03:34 WBC 12.3 H (4.3-11.1) K/mcL Hgb 11.9 L (12.9-16.9) g/dL Hct 37.6 (37.5-50.1) % Plt Count 253 (140-400) K/mcL BMP 03/18/16 03:34 Sodium 138 Potassium 3.6 Chloride 99 Carbon Dioxide 32 H BUN 11 Creatinine 0.83 Glucose 125 H Calcium 7.9 L Microbiology 03/16/16 16:30 Sputum Culture - Preliminary Sputum 03/14/16 15:21 Blood Culture - Preliminary Peripheral Venipuncture No growth. 03/14/16 15:21 Blood Culture - Preliminary Peripheral Venipuncture No growth. 03/14/16 15:45 Urine Culture - Final Urine,Clean Catch Klebsiella pneumoniae Consult Discharge Plan - Plan Referrals: Rene Bo MD [Primary Care Provider] - 03/23/16 3:15 pm (show up 30 minutes early to fill out paper work.)
[2016-03-19] MEDS: Vancomycin 2,000 MG in D5% in Water 500 ML IVPB SCH ×2 (02:53→14:35)
[2016-03-19] MEDS: *HR* Morphine 2 MG/ML SYRINGE IVP PRN ×5 (02:58→22:07)
[2016-03-19] MEDS: Meropenem 1,000 MG in 0.9 % Sodium Chloride Mini Bag 100 ML IVPB SCH ×3 (04:52→22:05)
[2016-03-19] MEDS: Budesonide/Formoterol 160/4.5 MDI IH SCH ×2 (10:35→22:29)
[2016-03-19] MEDS: clonazePAM 0.5 MG TABLET PO SCH ×2 (10:54→22:05)
[2016-03-19] MEDS: BuPROPion SR (12 HR) 150 MG TABLET PO SCH ×2 (10:54→22:05)
[2016-03-19] MEDS: Loratadine 10 MG TABLET PO SCH (10:54)
[2016-03-19] MEDS: Furosemide 40 MG TABLET PO SCH ×2 (10:54→22:05)
[2016-03-19] MEDS: Lactobacillus 1 EACH CAP.SPRINK PO SCH ×2 (10:54→22:05)
[2016-03-19] MEDS: *HR* Heparin 5,000 UNIT/ML VIAL SQ SCH ×3 (10:54→23:46)
--- NOTE | 2016-03-19 11:51 | Internal Med Progress Note ---
Date of Encounter: 03/19/16 Time of Encounter: 11:49 - Assessment and plan (1) Cellulitis, leg Current Visit: Yes Status: Acute Assessment and plan: Continue vancomycin and meropenem (zosyn was not given due to allergy to penicillin). Vancomycin dosing per pharmacy. Qualifiers: Laterality: left Qualified Code(s): L03.116 - Cellulitis of left lower limb (2) Fever Current Visit: Yes Status: Resolved Assessment and plan: Possibly due to cellulitis versus urinary tract infection. Resolved now Qualifiers: Fever type: unspecified Qualified Code(s): R50.9 - Fever, unspecified (3) Obesity hypoventilation syndrome Current Visit: Yes Status: Acute Assessment and plan: Patient is status post tracheostomy and ventilator. Ventilator in the hospital is apparently not fitting his tracheostomy. Continue Ventimask (4) Morbid obesity with BMI of 70 and over, adult Current Visit: Yes Status: Chronic Assessment and plan: Supportive care (5) Chronic respiratory failure Current Visit: Yes Status: Acute Assessment and plan: Obesity hypoventilation syndrome. Patient is status post tracheostomy and on ventilator. Ventilator in the hospital is apparently not fitting his tracheostomy. Continue Ventimask. Qualifiers: Respiratory failure complication: unspecified whether with hypoxia or hypercapnia Qualified Code(s): J96.10 - Chronic respiratory failure, unspecified whether with hypoxia or hypercapnia (6) UTI (urinary tract infection) Current Visit: Yes Status: Acute Assessment and plan: Urine culture shows Klebsiella pneumonia. Continue meropenem (zosyn was not given due to penicillin allergy) Qualifiers: Urinary tract infection type: acute cystitis Hematuria presence: without hematuria Qualified Code(s): N30.00 - Acute cystitis without hematuria - Subjective Interval history: Pt is seen and examined at the bedside and chart reviewed. Pt reports feeling better today - pain in the leg and redness are improving. Denies headache, nausea, vomiting, fever, chills. Pt had ventimask with his tracheostomy. - Constitutional Vitals: Temp Pulse Resp BP Pulse Ox 97.6 F 72 16 123/55 97 03/19/16 11:24 03/19/16 11:24 03/19/16 11:24 03/19/16 11:24 03/19/16 11:24 General appearance: Present: morbidly obese Exam: General: Not in acute distress at the time of my evaluation. Morbid obesity. s/ p tracheostomy Lungs: Clear to auscultation Cardiac: Regular rate and rhythm. No significant murmurs Abdomen: Obese, non tender. Bowel sounds present Neurological: Alert and oriented. No gross localizing deficits Psych: Not aggressive or agitated Extremities: Erythema on the left lower thigh is improving Skin: No generalized rash Internal Medicine: Result - Labs CBC & Chem 7: 03/18/16 03:34 03/18/16 03:34 Labs: Microbiology 03/16/16 16:30 Sputum Culture - Final Sputum 03/14/16 15:21 Blood Culture - Preliminary Peripheral Venipuncture No growth. 03/14/16 15:21 Blood Culture - Preliminary Peripheral Venipuncture No growth. 03/14/16 15:45 Urine Culture - Final Urine,Clean Catch Klebsiella pneumoniae Consult Discharge Plan - Plan Referrals: Rene Bo MD [Primary Care Provider] - 03/23/16 3:15 pm (show up 30 minutes early to fill out paper work.)
[2016-03-20] MEDS: *HR* Morphine 2 MG/ML SYRINGE IVP PRN ×4 (00:18→18:36)
[2016-03-20] MEDS: Vancomycin 2,000 MG in D5% in Water 500 ML IVPB SCH ×2 (03:35→16:35)
[2016-03-20 04:31] LABS: Hematocrit 41.8 % (37.5-50.1); Hemoglobin 12.7 g/dL (12.9-16.9); Mean Corpuscular HGB Conc 30.4 g/dL (31.6-35.5); Mean Corpuscular Hemoglobin 28.1 pg (28.0-33.3); Mean Corpuscular Volume 92.5 fL (83.0-100.0); Platelet Count 290 K/mcL (140-400); Red Blood Count 4.52 M/mcL (4.19-5.50); Red Cell Distribution Width 13.4 % (11.5-14.5)
[2016-03-20 04:54] LABS: BUN/Creatinine Ratio 17 (6-26); Blood Urea Nitrogen 12 mg/dL (8-26); Calcium 8.4 mg/dL (8.6-10.8); Carbon Dioxide 29 mEq/L (19-29); Chloride 102 mEq/L (98-109); Glucose 113 mg/dL (70-99); Osmolality,Calculated 289 (280-300); Potassium 4.1 mEq/L (3.5-4.5); Sodium 139 mEq/L (136-145); eGFR For African Americans > 60 (> 60); eGFR For Non-African Americans > 60 (> 60)
[2016-03-20] MEDS: Meropenem 1,000 MG in 0.9 % Sodium Chloride Mini Bag 100 ML IVPB SCH ×3 (05:08→20:54)
[2016-03-20] MEDS: clonazePAM 0.5 MG TABLET PO SCH ×2 (10:26→20:53)
[2016-03-20] MEDS: Lactobacillus 1 EACH CAP.SPRINK PO SCH ×2 (10:26→20:53)
[2016-03-20] MEDS: BuPROPion SR (12 HR) 150 MG TABLET PO SCH ×2 (10:26→20:53)
[2016-03-20] MEDS: *HR* Heparin 5,000 UNIT/ML VIAL SQ SCH ×2 (10:26→16:36)
[2016-03-20] MEDS: Furosemide 40 MG TABLET PO SCH ×2 (10:26→20:53)
[2016-03-20] MEDS: Loratadine 10 MG TABLET PO SCH (10:26)
--- NOTE | 2016-03-20 10:34 | Internal Med Progress Note ---
Date of Encounter: 03/20/16 Time of Encounter: 09:00 - Assessment and plan (1) Cellulitis, leg Current Visit: Yes Status: Acute Assessment and plan: continue broad spectrum antibiotics Qualifiers: Laterality: left Qualified Code(s): L03.116 - Cellulitis of left lower limb (2) Obesity hypoventilation syndrome Current Visit: Yes Status: Chronic Assessment and plan: s/p trachestomy , vent dependant at base line (3) UTI (urinary tract infection) Current Visit: Yes Status: Acute Assessment and plan: + fr Klebsiella pneumoniae , continue merrem for now Qualifiers: Urinary tract infection type: acute cystitis Hematuria presence: without hematuria Qualified Code(s): N30.00 - Acute cystitis without hematuria (4) Morbid obesity with BMI of 70 and over, adult Current Visit: Yes Status: Chronic Assessment and plan: dietary consult pt needs, education about weight loss, check HBA1C FLP - Time Spent With Patient 25 - 35 minutes - Subjective Interval history: pt denies fever or chills, cellulitis in left lower extremity - Constitutional Vitals: Temp Pulse Resp BP Pulse Ox 97.3 F L 57 20 138/57 98 03/20/16 07:30 03/20/16 07:30 03/20/16 07:30 03/20/16 07:30 03/20/16 07:30 General appearance: Present: A&O X 3, morbidly obese - Respiratory Respiratory exam: Present: decreased breath sounds - Cardiovascular Cardiovascular exam: Present: RRR, +S1, +S2. Absent: +S3 - GI/Abdominal GI/Abdominal exam: Present: normal bowel sounds - Extremities Exam Additional comments: Cellulitis , in left lower extremitiy improving - Neurological Exam Neurological exam: Present: CN II-XII intact, oriented X3 Internal Medicine: Result - Labs CBC & Chem 7: 03/20/16 04:15 03/20/16 04:15 Labs: Short CBC 03/20/16 Range/Units 04:15 WBC 11.7 H (4.3-11.1) K/mcL Hgb 12.7 L (12.9-16.9) g/dL Hct 41.8 (37.5-50.1) % Plt Count 290 (140-400) K/mcL BMP 03/20/16 04:15 Sodium 139 Potassium 4.1 Chloride 102 Carbon Dioxide 29 BUN 12 Creatinine 0.71 L Glucose 113 H Calcium 8.4 L Consult Discharge Plan - Plan Referrals: Rene Bo MD [Primary Care Provider] - 03/23/16 3:15 pm (show up 30 minutes early to fill out paper work.)
[2016-03-20 11:28] LABS: Hemoglobin A1C 5.4 %
[2016-03-20 11:32] LABS: Cholesterol 125 mg/dL (< 200); HDL Cholesterol 21 mg/dL (40-59); LDL Cholesterol,Calculated 79 mg/dL (0-99); Triglycerides 127 mg/dL (< 150)
[2016-03-20] MEDS: Budesonide/Formoterol 160/4.5 MDI IH SCH ×2 (15:38→20:13)
[2016-03-20] MEDS: Ipratropium/Albuterol Neb 3 ML IH SCH ×4 (15:39→23:29)
[2016-03-20] MEDS: Nystatin Cream 15 GM TUBE TP SCH (20:54)
[2016-03-21] MEDS: *HR* Morphine 2 MG/ML SYRINGE IVP PRN
[2016-03-21] MEDS: *HR* Heparin 5,000 UNIT/ML VIAL SQ SCH ×2 (00:13→07:34)
[2016-03-21] MEDS: Vancomycin 2,000 MG in D5% in Water 500 ML IVPB SCH (03:20)
[2016-03-21] MEDS: Ipratropium/Albuterol Neb 3 ML IH SCH ×2 (04:17→08:11)
[2016-03-21] MEDS: Meropenem 1,000 MG in 0.9 % Sodium Chloride Mini Bag 100 ML IVPB SCH (05:08)
[2016-03-21 05:31] LABS: BUN/Creatinine Ratio 15 (6-26); Blood Urea Nitrogen 11 mg/dL (8-26); Calcium 8.2 mg/dL (8.6-10.8); Carbon Dioxide 34 mEq/L (19-29); Chloride 100 mEq/L (98-109); Glucose 143 mg/dL (70-99); Osmolality,Calculated 290 (280-300); Potassium 3.9 mEq/L (3.5-4.5); Sodium 139 mEq/L (136-145); eGFR For African Americans > 60 (> 60); eGFR For Non-African Americans > 60 (> 60)
[2016-03-21] MEDS: BuPROPion SR (12 HR) 150 MG TABLET PO SCH (07:35)
[2016-03-21] MEDS: Nystatin Cream 15 GM TUBE TP SCH (07:35)
[2016-03-21] MEDS: clonazePAM 0.5 MG TABLET PO SCH (07:35)
[2016-03-21] MEDS: Furosemide 40 MG TABLET PO SCH (07:35)
[2016-03-21] MEDS: Loratadine 10 MG TABLET PO SCH (07:35)
[2016-03-21] MEDS: Lactobacillus 1 EACH CAP.SPRINK PO SCH (07:35)
[2016-03-21] MEDS: Budesonide/Formoterol 160/4.5 MDI IH SCH (08:12)
--- NOTE | 2016-03-21 10:13 | Discharge Summary ---
Date of Encounter: 03/21/16 Time of Encounter: 09:20 - Discharge Diagnosis (1) Cellulitis, leg Priority: Primary Status: Acute Qualifiers: Laterality: left Qualified Code(s): L03.116 - Cellulitis of left lower limb (2) Chronic respiratory failure Priority: Secondary Status: Chronic Qualifiers: Respiratory failure complication: unspecified whether with hypoxia or hypercapnia Qualified Code(s): J96.10 - Chronic respiratory failure, unspecified whether with hypoxia or hypercapnia (3) UTI (urinary tract infection) Priority: Secondary Status: Acute Qualifiers: Urinary tract infection type: acute cystitis Hematuria presence: without hematuria Qualified Code(s): N30.00 - Acute cystitis without hematuria (4) Morbid obesity with BMI of 70 and over, adult Priority: Secondary Status: Chronic (5) Obesity hypoventilation syndrome Priority: Secondary Status: Chronic - Discharge Medications Prescriptions: Oxycodone HCl/Acetaminophen [Percocet 7.5-325 mg Tablet] 1 each PO Q4H #20 tablet Sulfamethoxazole/Trimeth DS [Bactrim DS] 1 each PO BID #16 tablet Home Medications: Albuterol Neb [Proventil Neb] 2.5 mg IH Q4H PRN 03/14/16 [History] BuPROPion SR (12 HR) [Wellbutrin SR] 150 mg PO BID 03/14/16 [History] Cetirizine HCl [Zyrtec] 10 mg PO DAILY 03/14/16 [History] ClonazePAM [Klonopin] 0.5 mg PO BID 03/14/16 [History] Cyclobenzaprine HCl 10 mg PO TID 03/14/16 [History] Fluticasone/Vilanterol [Breo Ellipta 100-25 Mcg INH] 1 each IH DAILY 03/14/16 [ History] Furosemide [Lasix] 40 mg PO BID 03/14/16 [History] Metoprolol [Lopressor] 50 mg PO BID 03/14/16 [History] Potassium Chloride [K-Tab ER] 20 meq PO DAILY 03/14/16 [History] Oxycodone HCl/Acetaminophen [Percocet 7.5-325 mg Tablet] 1 each PO Q4H #20 tablet 03/21/16 [Rx] Sulfamethoxazole/Trimeth DS [Bactrim DS] 1 each PO BID #16 tablet 03/21/16 [Rx] Allergies/Adverse Reactions: Allergies aspirin [ASA] Allergy (Verified 07/07/15 08:57) Difficulty Breathing Penicillins Allergy (Verified 07/07/15 08:57) Difficulty Breathing Date of admission: 03/14/16 17:58 Primary care physician: Rene Bo MD Consults: 03/16/16 13:02 Consult to Invasive Line Access Team [CONS] Routine Reason for Consult: difficult stick (needed ultrasound in ER), PIVs "falling out" Line Type: EPIV 03/20/16 10:38 consult to sales promoter [Consult to Nutrition] [CONS] Routine Comment: morbid obesity councelled on diet Consulting Provider: NUTRITION Reason for Dietary Consult: Other 03/20/16 10:41 Consult to Physical Therapy [CONS] Routine Comment: Evaluate, develop and implement POC 03/20/16 10:42 Consult to Ruby Developer [CONS] Routine Reason for SW Consult: discharge plannning Discharging clinician: Jamir Rodriguez Anticipated date of discharge: 03/21/16 - Patient Status Disposition: Home, Self-Care Condition: Good Functional capacity at discharge: wheelchair bound Overall status at discharge: patient is progressing back to baseline - Discharge Instructions Instructions: Cellulitis (DC), Chronic Hypertension (DC) Follow Up With: Rene Bo MD [Primary Care Provider] - 03/23/16 3:15 pm (show up 30 minutes early to fill out paper work.) Additional Instructions: Keep left lower extremity elevated above the level of heart while in bed. - Diet and Activity Activity: increase activity as tolerated Diet: low fat, low cholesterol, low salt diet Hospital course: Mr. Kaminski is a 30 year old male with history of morbid obesity who was admitted here with fever and during the workup was found to have left lower extremity cellulitis. He was treated with intravenous antibiotics with improvement in his cellulitis. Presently patient is stable to be discharged home on oral antibiotics. His urine was positive for Klebsiella sensitive to Bactrim on which he will be discharged home. Patient also has chronic respiratory failure and tracheostomy and uses home oxygen. He will follow-up with his primary care provider for his chronic medical conditions and his cellulitis. He is advised to return to the ER if his cellulitis worsens. Is also advised to keep his left lower extremity elevated in bed. - Time Spent with Patient Total time spent providing and/or coordinating discharge services: Greater than 30 minutes (35 min) - Constitutional Vitals: Temp Pulse Resp BP Pulse Ox 97.5 F L 69 23 130/68 99 03/21/16 08:27 03/21/16 08:27 03/21/16 08:27 03/21/16 08:27 03/21/16 08:27 General appearance: Present: cooperative, A&O X 3, morbidly obese, obese, answers questions appropriately - Respiratory Respiratory exam: Present: CTAB. Absent: accessory muscle use, rales, rhonchi, wheezes - GI/Abdominal GI/Abdominal exam: Present: normal bowel sounds, soft, no peritoneal signs. Absent: distended, tenderness - Extremities Exam Extremities exam: Present: warm, radial pulses palpable and symetrical. Absent : calf tenderness, cyanotic, pedal edema Additional comments: Erythema significantly improved compared to marked regions of cellulitis at the left lower thigh and calf region. Mildly tender to palpation - Neurological Exam Neurological exam: Present: CN II-XII intact, oriented X3, no focal deficits. Absent: facial droop, speech deficit - Skin Skin exam: Present: erythema (Involving the left leg as described above), intact - Attending Attestation This document has been at least partially created by [email or web address] voice recognition technology by Dr. Rodriguez. Errors in grammar, wording or other phrases may exist. If errors are found after the documentation is signed, they will be addressed individually in the addendum section of this document when appropriate.
[2016-03-21 11:00] VITALS: BP 137/62
[2016-03-21] MEDS ORDERED: Aminoglycoside Consult 1 EACH MC ONE (11:29)
== END 2016-03-21 11:30 | disposition home or self-care (01) | DRG 463 ==
LOC: 3BNU 12:33 → EMEROO 12:33 → SUATTDRO 17:58 → OBSVTOIN 17:58 → 2NNU 18:40
PROVIDERS: ADMIT Nurse Practitioner Family; ATTEND Internal Medicine